=== PATIENT | male | born 1970 | race Caucasian/White ===

== ENCOUNTER → 2017-07-16 12:14 | Outpatient (CLI) | payer BC | END | disposition home or self-care (01) | LOC: D.US 12:14 | DX: R60.9 Edema, unspecified (principal) ==

== ENCOUNTER → 2017-07-17 09:20 | Outpatient (CLI) | payer BC | END | disposition home or self-care (01) | LOC: D.US 09:20 | DX: M79.605 Pain in left leg (principal); M79.604 Pain in right leg ==

== ENCOUNTER → 2017-07-25 07:39 | Outpatient (CLI) | payer BC | END | disposition home or self-care (01) | LOC: D.CT 07:39 | DX: M79.606 Pain in leg, unspecified (principal) ==

== ENCOUNTER → 2017-08-13 07:22 | Outpatient (CLI) | payer BC | END | disposition home or self-care (01) | LOC: D.CT 07:22 | DX: R91.8 Other nonspecific abnormal finding of lung field (principal) ==

== ENCOUNTER 2020-04-03 22:27 | Emergency (ER) | payer OTHER ==
[~2020-04-03] VITALS: Ht 177.8 cm; Wt 209.5 kg
[2020-04-03] MEDS ORDERED: NEXIUM20 MG PO (22:39)
[2020-04-03] MEDS ORDERED: HYDROCHLOROTHIA50 MG PO (22:40)
[2020-04-03] MEDS ORDERED: KLOR-CON 1010 MEQ PO (22:40)
[2020-04-03] MEDS ORDERED: LASIX40 MG (22:41)
[2020-04-03] MEDS ORDERED: LISINOPRIL20 MG PO (22:41)
[2020-04-03] MEDS ORDERED: GLUCOPHAGE500 MG PO (22:41)
[2020-04-03] MEDS ORDERED: PROZAC20 MG PO (22:42)
[2020-04-03] MEDS ORDERED: LIPITOR40 MG PO (22:42)
[2020-04-03] MEDS ORDERED: IMODIUM2 MG (22:42)
[2020-04-03] MEDS ORDERED: ELIQUIS5 MG PO (22:42)
[2020-04-03 23:14] LABS: BASOPHILS 0.1 % (0-2); EOSINOPHILS 1.7 % (0-7); HEMOGLOBIN 15.5 g/dL (13.5-17.5); IMMATURE GRANULOCYTES 0.2 % (0-5); LYMPHOCYTES 15.4 % (15-50); MCH 28.8 pg (26.0-34.0); MCV 92.8 fL (80.0-100.0); MEAN PLATELET VOLUME 10.4 fL (7.4-10.4); MONOCYTES 5.5 % (2-11); NEUTROPHILS 77.1 % (40-80); PLATELET COUNT 204 10x3/uL (130-400); RBC 5.39 10x6/uL (4.20-6.10); RDW 15.1 % (11.5-14.5); WBC 9.4 10x3/uL (4.8-10.8)
[2020-04-03 23:31] LABS: ALBUMIN 3.4 g/dL (3.4-5.0); ANION GAP 1.9 mmol/L (8-16); BILIRUBIN - TOTAL 0.53 mg/dL (0.2-1.3); C-REACTIVE PROTEIN 2.1 mg/dL (0.0-0.9); CALCIUM 8.4 mg/dL (8.5-10.1); CREATININE - SERUM 1.4 mg/dL (0.6-1.3)
[2020-04-03 23:34] LABS: CARBON DIOXIDE 41.1 mmol/L (21.0-32.0)
[2020-04-03] MEDS ORDERED: TYLENOL W/CODEI1 TAB PO (23:51)
== END 2020-04-04 00:29 | disposition home or self-care (01) ==
LOC: D.ER 22:27
PROVIDERS: Family Medicine
DX: M23.91 Unspecified internal derangement of right knee (principal); R06.89 Other abnormalities of breathing; N28.9 Disorder of kidney and ureter, unspecified

== ENCOUNTER → 2020-04-11 09:21 | Outpatient (CLI) | payer OTHER ==
[2020-04-03 22:38] VITALS: BMI 66.2
[~2020-04-11 09:21] MED LIST: ELIQUIS5 MG PO; GLUCOPHAGE500 MG PO; HYDROCHLOROTHIA50 MG PO; IMODIUM2 MG; KLOR-CON 1010 MEQ PO; LASIX40 MG; LIPITOR40 MG PO; LISINOPRIL20 MG PO; NEXIUM20 MG PO; PROZAC20 MG PO; TYLENOL W/CODEI1 TAB PO
== END | disposition home or self-care (01) ==
LOC: D.MRI 04-08 15:30
PROVIDERS: ATTEND Orthopaedic Surgery
DX: S83.231A Complex tear of medial meniscus, current injury, right knee, initial encounter (principal)

== ENCOUNTER 2020-05-05 06:45 | Day surgery (SDC) | payer OTHER ==
[2020-05-03 11:04] LABS: HEMATOCRIT 49.2 % (42.0-54.0); HEMOGLOBIN 15.5 g/dL (13.5-17.5); MCH 29.5 pg (26.0-34.0); MCHC 31.5 g/dL (31.0-37.0); MCV 93.5 fL (80.0-100.0); MEAN PLATELET VOLUME 10.5 fL (7.4-10.4); RBC 5.26 10x6/uL (4.20-6.10); RDW 14.1 % (11.5-14.5); WBC 5.6 10x3/uL (4.8-10.8)
[~2020-05-05] VITALS: Ht 177.8 cm; Wt 190.5 kg
[~2020-05-05 06:45] MED LIST changes: +HYDROCODON-ACE1 EA10 PO
[2020-05-05 06:47] LABS: CALC OSMOLALITY 279 mosm/kg (275-300); CALCIUM 8.8 mg/dL (8.5-10.1); CARBON DIOXIDE 34.4 mmol/L (21.0-32.0); CHLORIDE - SERUM 103 mmol/L (98-107); CREATININE - SERUM 1.1 mg/dL (0.6-1.3); GLUCOSE 97 mg/dL (74-106); POTASSIUM - SERUM 4.5 mmol/L (3.5-5.1); SODIUM 139 mmol/L (136-145); UREA NITROGEN 18 mg/dL (7-18); eGFR NON AFRICAN AMERICAN 75 mL/min (90-120)
[2020-05-05 07:27] VITALS: BP 107/69; Ht 177.8 cm; Wt 190.5 kg
[2020-05-05] MEDS ORDERED: HYDROCODON-ACE1 EA10 PO (12:18)
--- NOTE | 2020-05-05 18:48 | NUR ---
1430 IV D\C'D WITH CANNULA INTACT, PRESSURE HELD AND DRSG APPLIED. DISCHARGE INSTRUCTIONS GIVEN. PT VERBALIZED AN UNDERSTANDING. SAT ON RA IS 90 WHICH IS HIGHER THAN UPON ADMISSION. EVEN AND UNLABORED BREATHING AND PT IS W/O C/O. OPERATIVE SITE IS UNCHANGED AND PT TRANSFERS TO WITHOUT ASSISTANCE.
--- NOTE | 2020-05-09 08:46 | OP ---
PATIENT NAME: CLARISSA KEENE MEDICAL RECORD: [id number] :68 LOCATION:[facility] ADMISSION DATE: SURGEON: CLARISSA PRESSLEY MD DATE OF OPERATION: 05/05/2020 PREOPERATIVE DIAGNOSIS: Medial meniscus tear of the right knee. POSTOPERATIVE DIAGNOSIS: Medial meniscus tear of the right knee. PROCEDURE: Arthroscopic partial medial meniscectomy of the right knee. SURGEON: Clarissa Pressley MD ANESTHESIA: General. INTRAOPERATIVE COMPLICATIONS: None. SUMMARY OF PATHOLOGIC FINDINGS: The patient was indeed found to have a complex tear of the posterior horn of the medial meniscus requiring partial resection. 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 OPERATIVE SUMMARY IN DETAIL: After obtaining the appropriate preoperative orthopedic surgery consent as well as anesthetic consultation, evaluation and clearance, the patient was brought to the operating room and placed on the operating table in supine position. After adequate general laryngeal mask airway was administered, tourniquet was placed in the proximal aspect of the right lower extremity. Right lower extremity was then prepped and draped in routine sterile fashion. The leg was elevated and exsanguinated, tourniquet was inflated to 350 mmHg. Routine timeout was taken and agreed upon by all given the patient's unique identifiers. Inferolateral portal was established followed by superomedial portal and inferomedial portal. Diagnostic arthroscopy did show the above findings. Combination of arthroscopic resector as well as a meniscotome were utilized to debride the tear of the meniscus. This started at the root, but not torn from the root over to the medial aspect. This complex tear was completely debrided back to a very stable meniscal elements. Having completed this, the knee was insufflated with 30 cc of 0.25% Marcaine with epinephrine, 80 mg of Depo-Medrol. Arthroscopy portals were closed in routine interrupted fashion using 4-0 Prolene. Sterile dressings were applied. The tourniquet was deflated. The patient was awakened and taken to recovery room in stable condition. All final needle and sponge counts were correct. TRANSINT:[id number] Voice Confirmation ID: [id number] DOCUMENT ID: [id number] CLARISSA PRESSLEY MD at [id number] CC: [id number] DICTATION DATE: 05/05/20 1221 TERMINOLOGIST: 05/05/20 1412 [facility] [place] 05/05/20 [place] [id number] [place] [id number]
== END 2020-05-05 15:40 | disposition home or self-care (01) ==
LOC: D.OPS 06:45
PROVIDERS: Anesthesiology; ATTEND Orthopaedic Surgery
DX: S83.231A Complex tear of medial meniscus, current injury, right knee, initial encounter (principal); X58.XXXA Exposure to other specified factors, initial encounter; M25.561 Pain in right knee; E66.01 Morbid (severe) obesity due to excess calories